=== PATIENT | male | born 1940 | race Caucasian/White ===

== ENCOUNTER 2019-10-12 09:37 | Emergency (ER) | payer MEDICARE, OTHER ==
[2019-10-12 10:15] VITALS: BP 126/66
[2019-10-12 10:29] LABS: Influenza A Molecular Negative (Negative); Influenza B Molecular Negative (Negative)
--- NOTE | 2019-10-12 11:09 | UC ---
Respiratory Complaint HPI - HPI Summary HPI Summary: 79 yo male with a 3-4 day hx of cough and dyspnea hurts to take a deep breath (back) no CP hx COPD no known covid exposure - History of Current Complaint Chief Complaint: UCRespiratory Stated Complaint: SOB Time Seen by Provider: 10/12/19 09:41 Hx Obtained From: Patient Onset/Duration: Gradual Onset, Lasting Weeks Timing: Constant Severity Initially: Mild Severity Currently: Moderate Pain Intensity: 0 Pain Scale Used: 0-10 Numeric Character: Cough: Productive Aggravating Factors: Deep Breaths Alleviating Factors: Nothing Associated Signs And Symptoms: Positive: Dyspnea - Allergies/Home Medications Allergies/Adverse Reactions: Allergies Allergy/AdvReac Type Severity Reaction Status Date / Time No Known Allergies Allergy Verified 10/12/19 09:45 Home Medications: Home Medications Albuterol HFA INHALER* [Ventolin HFA Inhaler*] 1 puff TID PRN 10/12/19 [History Confirmed 10/12/19] Aspirin EC TAB* [Ecotrin EC TAB*] 325 mg PO DAILY 10/12/19 [History Confirmed ] Esomeprazole Magnesium [Nexium 24Hr] 1 cap DAILY 10/12/19 [History Confirmed 12/25] Fluticasone-Salmeterol 250-50* [Advair Diskus 250-50*] 1 puff DAILY 10/12/19 [ History Confirmed 10/12/19] Metoprolol Succinate XL TAB* [Toprol XL TAB*] 1 tab DAILY 10/12/19 [History Confirmed 10/12/19] Rosuvastatin Calcium [Crestor] 1 tab DAILY 10/12/19 [History Confirmed 10/12/19] amLODIPine TAB* [Norvasc 5 mg TAB*] 1 tab DAILY 10/12/19 [History Confirmed 12/25] PMH/Surg Hx/FS Hx/Imm Hx Previously Healthy: Yes Respiratory History: COPD - Surgical History Surgical History: Yes Surgery Procedure, Year, and Place: BILATERAL CAROTID ENDARTERECTOMY. Appendix - Family History Known Family History: Positive: Hypertension - Social History Alcohol Use: Rare Substance Use Type: None Smoking Status (MU): Heavy Every Day Tobacco Smoker Type: Cigarettes Amount Used/How Often: 1/4 PPD x60 YEARS Review of Systems All Other Systems Reviewed And Are Negative: Yes Constitutional: Positive: Negative Skin: Positive: Negative Eyes: Positive: Negative ENT: Positive: Negative Respiratory: Positive: Shortness Of Breath, Cough Cardiovascular: Positive: Negative Gastrointestinal: Positive: Negative Genitourinary: Positive: Negative Motor: Positive: Negative Neurovascular: Positive: Negative Musculoskeletal: Positive: Negative Neurological/Mental Status: Positive: Negative Psychological: Positive: Negative Physical Exam Triage Information Reviewed: Yes Appearance: Well-Appearing, No Pain Distress, Well-Nourished Vital Signs: Initial Vital Signs Temp 97.4 F 10/12/19 10:12 Pulse 70 10/12/19 10:12 Resp 28 10/12/19 10:12 BP 126/66 10/12/19 10:12 Pulse Ox 95 10/12/19 10:12 Vital Signs Reviewed: Yes Eyes: Positive: Conjunctiva Clear ENT: Positive: Pharynx normal, Uvula midline. Negative: Hearing grossly normal , Nasal congestion, Nasal drainage, Trismus, Muffled voice, Hoarse voice Neck: Positive: Nontender, No Lymphadenopathy Respiratory: Positive: No respiratory distress, No accessory muscle use, Crackles - left base Cardiovascular: Positive: RRR, No Murmur Musculoskeletal: Positive: ROM Intact, Edema @ - some pre tibial Neurological: Positive: Alert Psychological Exam: Normal Skin Exam: Normal Diagnostics - Radiology No standard instances Radiology Interpretation Completed By: Radiologist Summary of Radiographic Findings: left basilar infiltrate. left pleural effusion - EKG Cardiac Rate: NL Cardiac Rhythm: Sinus: Normal ST Segment: Normal Respiratory Course/Dx - Differential Dx/Diagnosis Provider Diagnosis: Pleural effusion, left, Left lower lobe pulmonary infiltrate Discharge ED - Sign-Out/Discharge Documenting (check all that apply): Patient Departure All imaging exams completed and their final reports reviewed: Yes - Discharge Plan Condition: Guarded Disposition: HOME-RECOMMEND TO ED Referrals: Francisco Gonzalez MD [Primary Care Provider] - Additional Instructions: please go directly to the ER you have a LEFT SIDED pneumonia with some fluid (PLEURAL EFFUSION) I spoke to SYLVESTER RYAN NP the ER is expecting you - Billing Disposition and Condition Condition: GUARDED Disposition: Home-Recommend to ED
== END 2019-10-12 11:23 | disposition home health service (06) ==
LOC: UCCORT 09:37
DX: J90 Pleural effusion, not elsewhere classified (principal); R91.8 Other nonspecific abnormal finding of lung field; Z20.828 Contact with and (suspected) exposure to other viral communicable diseases; J44.9 Chronic obstructive pulmonary disease, unspecified; Z79.82 Long term (current) use of aspirin; F17.210 Nicotine dependence, cigarettes, uncomplicated
CPT/HCPCS: 71046; 87635; 99212; G0463